=== PATIENT | female | born 1945 | race Caucasian/White ===

== ENCOUNTER 2022-04-17 12:52 | Outpatient (CLI) | payer MEDICARE, OTHER ==
[2022-04-18 01:01] LABS: SARS-CoV-2 PCR by NAA Not Detected (NotDetected)
== END 2022-04-17 12:53 | disposition home or self-care (01) ==
LOC: CSHLAB 12:52
PROVIDERS: ATTEND Internal Medicine Critical Care Medicine
DX: Z20.822 Contact with and (suspected) exposure to COVID-19 (principal)
CPT/HCPCS: U0003; U0005

== ENCOUNTER 2022-04-22 12:28 | Outpatient (CLI) | payer MEDICARE, OTHER | END 2022-04-22 12:29 | disposition home or self-care (01) | LOC: CSHCP 12:28 | PROVIDERS: ATTEND Internal Medicine Critical Care Medicine | DX: J44.9 Chronic obstructive pulmonary disease, unspecified (principal) | CPT/HCPCS: 94060; 94726; 94729; 94760 ==

== ENCOUNTER 2024-06-25 16:38 | Emergency (ER) | payer MEDICARE, OTHER ==
[~2024-06-25 16:38] MED LIST: Iopamidol 300 61% 100 ML VIAL FS ONE
[2024-06-25] MEDS ORDERED: Ondansetron PF 4 MG/2 ML Vial ONE (17:48)
[2024-06-25 18:26] LABS: #Basophils 0.07 10x3/uL (0.0-0.2); #Eosinphils 0.21 10x3/uL (0.0-0.5); #Monocytes 0.84 10x3/uL (0.0-1.1); #Neutrophils 9.73 10x3/uL (1.5-8.4); %Basophils 0.5 % (0.0-2.0); %Eosinophils 1.6 % (0.0-6.0); %Lymphocytes 18.8 % (18.0-47.0); %Monocytes 6.2 % (0.0-10.0); %Neutrophils 72.4 % (40.0-75.0); Hematocrit 36.7 % (34.9-44.5); Hemoglobin 12.5 g/dL (12.0-15.5); Mean Corpuscular HGB CONC 34.1 g/dL (32.0-36.0); Mean Corpuscular Hemoglobin 28.5 pg (27.0-33.0); Mean Corpuscular Volume 83.8 fL (81.6-98.3); Mean Platelet Volume 10.3 fL (7.4-10.4); Platelet Count 336 10x3/uL (150-450); RBC Distribution Width 12.8 % (11.5-14.5); Red Blood Cell (RBC) Count 4.38 10x6/uL (3.90-5.03); White Blood Cell (WBC) Count 13.5 10x3/uL (3.5-10.5)
[2024-06-25 18:44] LABS: Bilirubin Neg (Negative); Blood, Urine 50 (Negative); Clarity Clear (Clear); Glucose, Urine (Dipstick) Normal (Negative); Ketone, Urine Negative (Negative); Leukocyte 100 (Negative); Nitrite Negative (Negative); Protein, Urine (Dipstick) 30 mg/dl (Neg-Trace)
[2024-06-25 18:47] LABS: ALT (SGPT) 15 U/L (8-55); AST (SGOT) 20 U/L (5-34); Albumin 3.3 g/dL (3.4-4.8); Alkaline Phosphatase 54 U/L (40-110); Anion Gap 16 mmol/L (10-20); BUN (Urea Nitrogen) 15 mg/dL (9.8-20.1); Bilirubin, Total 0.9 mg/dL (0.2-1.2); Calc. Creatinine Clearance 0 mL/min (70-130); Calcium 9.5 mg/dL (7.8-10.44); Carbon Dioxide 27 mmol/L (23-31); Chloride 93 mmol/L (98-107); Estimated GFR 64; Glucose 110 mg/dL (83-110); Lipase 27 U/L (8-78); Potassium 3.1 mmol/L (3.5-5.1); Protein, Total 7.3 g/dL (5.8-8.1); Sodium 133 mmol/L (136-145)
[2024-06-25 19:05] LABS: Bacteria/HPF 2+ HPF (None Seen); CAUTI Indications for Culture Pelvic or flank pain
[2024-06-25 19:08] LABS: Mucous/LPF 2+ LPF (<2+); Transitional Epithelial 0-3 HPF (None Seen)
[2024-06-25 19:09] LABS: Urine Culture Reflex No No
[2024-06-25 19:49] LABS: SARS-CoV-2 E Target Negative; SARS-CoV-2 N2 Target Negative; SARS-CoV-2 NAA Rapid Test Not Detected (NotDetected); SARS-CoV-2 RdRP gene Negative
[2024-06-25] MEDS ORDERED: metroNIDAZOLE 500 MG TAB ONE (20:26)
[2024-06-25] MEDS ORDERED: Ciprofloxacin 500 MG TAB ONE (20:27)
== END 2024-06-25 21:08 | disposition home or self-care (01) ==
LOC: CSHERS 16:38
DX: K57.32 Diverticulitis of large intestine without perforation or abscess without bleeding (principal); N39.0 Urinary tract infection, site not specified; E11.9 Type 2 diabetes mellitus without complications; I10 Essential (primary) hypertension
CPT/HCPCS: 74177; 80053; 81001; 83690; 85025; 96374; 99284; J2405; U0002; Q9967